=== PATIENT | female | born 1995 | race Caucasian/White ===

== ENCOUNTER 2023-05-28 13:11 | Outpatient (REF) | payer OTHER, SELFPAY ==
--- NOTE | ~2023-05-28 | CT_ITS ---
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 TECHNIQUE: Multiple axial images were obtained through the chest, abdomen, and pelvis after the administration of 99 mL of intravenous Omnipaque 350. Images were evaluated on independent dedicated 3-D workstation and 3-D images were reconstructed with concurrent radiologist supervision and subsequently interpreted. This CT examination was performed using dose optimization techniques as appropriate, variously including the following: *Automated exposure control *Adjustment of mA and/or kV according to patient size (this includes techniques or standardized protocols for targeted exams where dose is matched to indication/reason for exam; i.e. extremities or head) *Use of iterative reconstruction technique DLP: 356 mGy-cm FINDINGS: VASCULAR FINDINGS: Heart: Normal in size. Coronary artery calcifications not present. Aorta: No aneurysm or dissection of the thoracoabdominal aorta. No penetrating atheromatous ulcer. Ascending Thoracic Aorta (largest diameter): 31 x 31 mm Aortic Arch: 21.3 mm Descending thoracic aorta (at level of main PA): 24.5 x 23.5 mm Supraceliac Abdominal Aorta: 19.7 x 18 point mm Infrarenal Abdominal Aorta: 15.2 x 14.2 mm Mesenteric Arteries: Celiac artery is patent. Superior mesenteric artery patent. Inferior mesenteric artery patent. Renal Arteries: Single renal arteries bilaterally. Renal arteries are patent and without stenosis or other vascular anomaly. NONVASCULAR FINDINGS: THORAX: Thyroid Gland: The visualized thyroid gland is normal. Lymph Nodes: No supraclavicular, axillary, mediastinal or hilar lymphadenopathy is identified. Mediastinum: No pathologic lymphadenopathy. Airways: The trachea and central bronchi are normal. Lungs: No airspace consolidation. No suspicious nodules or masses. Pleura: No pleural effusion. No pneumothorax. ABDOMEN/PELVIS: Liver: Relative hypoattenuation of the hepatic parenchyma in comparison to the spleen, which can be seen in the setting of hepatic steatosis. Gallbladder: Noninflamed. Biliary System: No intrahepatic or extrahepatic biliary dilation. Pancreas: Homogeneous in attenuation. Spleen: Normal in size. Kidneys/Bladder: Bilateral kidneys demonstrate symmetric enhancement. No perinephric fluid collection, urolithiasis or hydroureteronephrosis bilaterally. Adrenal Glands: Unremarkable. GI: The visualized alimentary tract is normal in course. No evidence of obstruction. Appendix: The appendix is not visualized; however, no pericecal inflammatory changes are seen in the right lower quadrant. Peritoneum: No pneumoperitoneum. No intra-abdominal fluid collection. Lymph Nodes: No pathologically enlarged abdominal or pelvic lymph nodes. Soft Tissues/Musculoskeletal: There is no acute fracture or significant focal osseous lesion. CT/CT angio chest aorta IMPRESSION: VASCULAR FINDINGS: No intramural hematoma, dissection, aneurysm of the thoracoabdominal aorta. NONVASCULAR FINDINGS: 1. No acute pathology of the chest, abdomen, or pelvis. 2. Suggestion of hepatic steatosis. Fleischner guidelines were followed.
== END 2023-05-28 13:12 | disposition home or self-care (01) ==
LOC: HO.CT 13:11
PROVIDERS: PCP Family Medicine; Visit Provider Family Medicine
DX: R10.13 Epigastric pain (principal); R07.89 Other chest pain; R10.84 Generalized abdominal pain
CPT/HCPCS: 71275; 74175